=== PATIENT | female | born 1985 | race Caucasian/White ===

== ENCOUNTER 2021-09-26 15:04 | Emergency (ER) | payer BC ==
[~2021-09-26] VITALS: Ht 152.4 cm; Wt 49.9 kg
--- NOTE | 2021-09-26 15:18 | NUR ---
Patient came in to the er c/o palpitation, diffuclty swallowing since yesterday. On room air, breathing evenly and unlabored. Connected to the monitor and pulse ox. kept comfortable, will continue to monitor accordingly.
[2021-09-26] MEDS ORDERED: IV NS 0.9% 1,000 ML BAG IV ONE ×2 (16:00→18:00)
[2021-09-26 16:31] LABS: BASOPHILS % (AUTO) 0.4 % (0.0-2.0); EOSINOPHILS % (AUTO) 0.1 % (0.0-6.0); HEMATOCRIT 41 % (33-45); HEMOGLOBIN 13.6 g/dL (11.5-14.8); LYMPHOCYTES # (AUTO) 1.1 K/uL (0.8-4.8); LYMPHOCYTES % (AUTO) 15.8 % (20.0-44.0); MEAN CORPUSCULAR HGB CONC 34 g/dl (31.0-36.0); MEAN CORPUSCULAR VOLUME 88 fL (82-100); MONOCYTES # (AUTO) 0.5 K/uL (0.1-1.30); MONOCYTES % (AUTO) 7.8 % (2.0-12.0); NEUTROPHILS # (AUTO) 5.1 K/uL (1.8-8.9); NEUTROPHILS % (AUTO) 75.9 % (43.0-81.0); PLATELET COUNT (AUTO) 252 K/uL (150-450); RED BLOOD CELL COUNT(AUTO) 4.61 MIL/uL (4.0-5.2); WHITE BLOOD COUNT (AUTO) 6.7 K/uL (4.3-11.0)
[2021-09-26 16:40] LABS: ALANINE AMINOTRANSFERASE 14 U/L (12-78); ALBUMIN 4.3 g/dL (3.4-5.0); ALKALINE PHOSPHATASE 63 U/L (46-116); ASPARTATE AMINOTRANSFERASE 17 U/L (15-37); BILIRUBIN,DIRECT 0.1 mg/dL (0.0-0.2); BILIRUBIN,TOTAL 0.7 mg/dL (0.2-1.0); CALCIUM, SERUM 9.7 mg/dL (8.5-10.1); CARBON DIOXIDE 23 mmol/L (21-32); CHLORIDE 100 mmol/L (98-107); CREATININE 0.8 mg/dL (0.6-1.3); GLUCOSE 89 mg/dL (74-106); POTASSIUM 3.8 mmol/L (3.5-5.1); SODIUM SERUM 140 mmol/L (136-145); TOTAL PROTEIN, SERUM 8.5 g/dL (6.4-8.2); UREA NITROGEN, BLOOD 9 mg/dL (7-18)
[2021-09-26 16:47] LABS: D-DIMER 1.12 mg/L(FEU (0.17-0.50)
[2021-09-26] MEDS ORDERED: IV NS 0.9% 250 ML IV ONE ×2 (18:06→18:42)
[2021-09-26] MEDS ORDERED: IOHEXOL-350 100 ML VIAL IV ONE ×2 (18:06→18:42)
--- NOTE | 2021-09-26 18:39 | NUR ---
wheeled patient to CT accompanied by dario.
[2021-09-26] MEDS ORDERED: CT SWABBABLE VALVE TRANS SET 1 EA INFUS.SET MC ONE (18:42)
--- NOTE | 2021-09-26 19:21 | NUR ---
COVID TEST WAS SWABBED AND SENT TO LAB
[2021-09-26] MEDS ORDERED: LIDOCAINE VISCOUS 2% UD 15 ML UDC MM ONE (20:00)
[2021-09-26] MEDS ORDERED: MAG HYDROX/AL HYDROX/SIMETH 30 ML UDC PO ONE (20:00)
[2021-09-26] MEDS ORDERED: MAG HYDROX/AL HYDROX/SIMETH 30 ML UDC ONE ×2 (20:04→20:08)
[2021-09-26] MEDS ORDERED: LIDOCAINE VISCOUS 2% UD 15 ML UDC ONE (20:04)
[2021-09-26] MEDS ORDERED: OMEP20TA5 PO (20:11)
--- NOTE | 2021-09-26 20:36 | NUR ---
Patient discharged to home in stable condition. Written and verbal after care instructions given. Patient verbalizes understanding of instruction.IV removed. Catheter intact and site benign. Pressure and 4x4 applied to site. No bleeding noted.
[2021-09-26 20:45] VITALS: BP 132/98
== END 2021-09-26 20:45 | disposition home or self-care (01) ==
LOC: ER 15:15
DX: R00.0 Tachycardia, unspecified (principal); R79.1 Abnormal coagulation profile; Z88.0 Allergy status to penicillin; Z83.3 Family history of diabetes mellitus; Z20.822 Contact with and (suspected) exposure to COVID-19
CPT/HCPCS: 36415; 71045; 71275; 80048; 80076; 80307; 82962; 84443; 84484; 84703; 85025; 85378; 85730; 87426; 87880; 93005; 96360; 96361; 99285; C9803; J7030 ×2; J7050 ×2; Q9967; 86403-TC